=== PATIENT | male | born 1975 | race Caucasian/White ===

== ENCOUNTER 2016-05-13 20:17 | Emergency (ER) | payer BC, OTHER ==
[2016-05-13] MEDS ORDERED: Tetracaine HCl 0.5% Ophth Soln 15 ML Bottle ONE (20:23)
[2016-05-13] MEDS ORDERED: Fluorescein Opthalmic Strip ONE (20:23)
[2016-05-13] MEDS ORDERED: Adacel (T-DAP) 0.5 ML VIAL ONE (20:31)
--- NOTE | 2016-05-13 20:58 | ERRECORD ---
[facility] EMERGENCY RECORD HPI EYE COMPLAINT (20:34 [facility]) CHIEF COMPLAINT: Patient presents for evaluation of pain, Patient presents for evaluation of redness, to the left eye. HISTORIAN: History provided by patient, 41M presents with left eye pain. States he was using a nail gun when he felt sudden impact and pain in the lateral aspect of his left eye. Denies visual changes, but reports pain. Denies foreign body sensation. Denies other injury. MECHANISM OF INJURY: Foreign Body, foreign body was of unknown composition, either metal nail or wood. LOCATION: Symptoms are localized, most severe in the left eye. TIME COURSE: Sudden onset of symptoms, There has been no change in the patient's symptoms over time. ASSOCIATED WITH: No associated contact use, No associated crusting, No associated discharge, No associated facial pain, No associated fever, No associated foreign body sensation, No associated glasses use, No associated headache, No associated nausea, Associated with tearing, No associated upper respiratory infection, No associated vomiting, No associated weakness, No associated blurred vision. RELIEVED BY: Nothing tried for relief. ROS (20:36 [facility]) CONSTITUTIONAL: Negative constitutional review of systems, Historian denies chills, denies fever. EYES: Historian reports eye pain, denies eye redness, denies eye discharge, denies vision changes. ENT: Negative ears, nose, throat review of systems, Historian denies rhinorrhea, denies sore throat. CARDIOVASCULAR: Negative cardiovascular review of systems, Historian denies chest pain, denies palpitations. RESPIRATORY: Negative respiratory review of systems, Historian denies cough, denies shortness of breath. GI: Negative gastrointestinal review of systems, Historian denies abdominal pain, denies constipation, denies diarrhea, denies nausea, denies vomiting. GENITOURINARY MALE: Negative genitourinary review of systems, Historian denies dysuria, denies hematuria. MUSCULOSKELETAL: Negative musculoskeletal review of systems, Historian denies back pain, denies fall, denies injury, denies neck pain. SKIN: Negative skin review of systems, Historian denies rash, denies skin changes. NEUROLOGIC: Negative neurologic review of systems, Historian denies headache. HEMO/LYMPHATIC: Normal hematologic/lymphatic system review, Historian denies abnormal blood clotting. &a-1R&a+25V*p+0X*y6798G*c202B*c15G*c2P*p-0X&a-25V&a+1R Name: Praveen Westfall : 1975 M41 MedRec: [id number] AcctNum: [id number] Prepared: FriMay 13, 2016 20:55 by Interface Page 1 of 4 pMD [facility] EMERGENCY RECORD PAST MEDICAL HISTORY (20:27 [facility]) MEDICAL HISTORY: No past medical history. MALE SURGICAL HISTORY: RIGHT WRIST SX LEFT KNEE SX. PSYCHIATRIC HISTORY: Notes: NO PREVIOUS PSYCH HX. FAMILY HISTORY: No known family hisotry. KNOWN ALLERGIES NKA CURRENT MEDICATIONS (20:37 [facility]) None VITAL SIGNS (20:22 [facility]) VITAL SIGNS: BP: 144/105, Pulse: 80, Resp: 20, Temp: 97.0 (Oral), Pain: 3, O2 sat: 97 on Room Air, Time: 05/13/2016 20:22. PHYSICAL EXAM (20:36 [facility]) CONSTITUTIONAL: Vital signs reviewed, Patient afebrile, Pulse normal, Blood pressure normal, Respiratory rate normal, Patient appears non toxic, Patient appears pain free, Patient alert and oriented to person, place and time. HEAD: Head exam normal, Head exam included findings of head atraumatic, normocephalic. EYES: Eye exam included findings of eyelids normal to inspection, Pupils equally round and reactive to light, Extraocular muscles intact, Conjunctiva, injected on the left, Sclera normal, Fundoscopic exam normal, Eye exam included findings of anterior chamber clear, Intraocular pressure, Fluorescein uptake abnormal, two corneal abrasions on left eye, one at 3 oclock, over lateral iris sparing pupil, second lateral to that, Visual acuity:, visual acuity intact. ENT: ENT exam normal, Ear exam normal, external ear normal, tympanic membranes normal, no bleeding, Pharynx exam normal, Uvula exam normal, Tonsil exam normal, Mouth exam normal, mucous membranes moist, teeth normal. NECK: Neck exam normal, Neck exam included findings of normal range of motion, Trachea midline, no meningeal signs, no cervical adenopathy, no tenderness. RESPIRATORY CHEST: Respiratory and chest exam normal, Respiratory exam included findings of no respiratory distress, Breath sounds clear. CARDIOVASCULAR: Cardiovascular assessment normal, Cardiovascular exam included findings of heart rate regular rate and rhythm, Heart sounds normal. ABDOMEN MALE: Abdominal exam included findings of abdomen nontender, Bowel sounds normal, no distension, no mass, no pulsatile masses, no peritoneal signs, no rigidity, no guarding, no rebound, Rovsing's sign absent. BACK: Back exam normal, Back exam included findings of normal &a-1R&a+25V*p+0X*m0346W*c202B*c15G*c2P*p-0X&a-25V&a+1R Name: Praveen Westfall : 1975 M41 MedRec: [id number] AcctNum: [id number] Prepared: FriMay 13, 2016 20:55 by Interface Page 2 of 4 pMD [facility] EMERGENCY RECORD inspection, range of motion normal, no tenderness. UPPER EXTREMITY: Upper extremity exam normal, Upper extremity exam included findings of inspection normal, Range of motion normal, Motor strength normal, Sensation intact, Radial pulse normal. LOWER EXTREMITY: Lower extremity exam normal, Lower extremity exam included findings of inspection normal, Range of motion normal, Motor strength normal, Sensation intact, Posterior tibial pulse normal, Pedal pulse normal. NEURO: Neuro exam normal, Neuro exam findings include patient oriented to person, place and time, Speech normal, Gait normal. SKIN: Skin exam normal, Skin exam included findings of skin warm, dry, and normal in color, no rash. PSYCHIATRIC: Psychiatric exam normal, Normal affect. MEDICATION ADMINISTRATION SUMMARY Drug Name: Adacel(Tdap Adolesn/Adult)(PF), Dose Ordered: 0.5 mL, Route: Intramuscular, Status: Given, Time: 20:37 05/13/2016, Detailed record available in Medication Service section. DOCTOR NOTES (20:52 [facility]) TEXT: patient presented with findings consistent with traumatic corneal abrasion. No evidence of infection, no Jamil sign, normal anterior chamber. No other concerning findings. Prophylactic topical antibiotics prescribed, patient can follow up with ophthalmology or return to the ED if symptoms do not improve. PATIENT STATUS: Patient has improved since arrival to emergency department. PATIENT PLAN: The patient will be discharged, The patient will follow up with primary care physician. PROBLEM LIST No recorded problems DIAGNOSIS (20:29 [facility]) FINAL: PRIMARY: Corneal abrasion. PRESCRIPTION (20:33 [facility]) ofloxacin ophthalmic: DROPS : 0.3 % : OPHTHALMIC : Quantity: 2 Unit: Drps Route: OPHTHALMIC Schedule: every 6 hours Dispense: QS May substitute. Refills: No Refills . NOTES: for 7 days No refills. DISPOSITION PATIENT: Disposition Type: Discharge, Disposition: *Discharge Home. [facility] Patient left the department. (20:46 [facility]) Ramon: &a-1R&a+25V*p+0X*i8312I*c202B*c15G*c2P*p-0X&a-25V&a+1R Name: KhoiPraveen : 1975 [facility] MedRec: [id number] AcctNum: [id number] Prepared: FriMay 13, 2016 20:55 by Interface Page 3 of 4 pMD [facility] EMERGENCY RECORD JJAC=MD Ally, Dayron KMOR=GENE Choe, Nicole MVIL=GENE Gutierrez, Gretchen &a-1R&a+25V*p+0X*[id number]*c202B*c15G*c2P*p-0X&a-25V&a+1R Name: KhoiPraveen : 1975 1 MedRec: [id number] AcctNum: [id number] Prepared: FriMay 13, 2016 20:55 by Interface Page 4 of 4 pMD MTDD
--- NOTE | 2016-05-13 21:10 | PICIS ---
[facility] EMERGENCY RECORD TRIAGE (20:24 [facility]) TRIAGE NOTES: C/O NAIL RICOCHET OFF OF LEFT EYE. (20:24 [facility]) PATIENT: NAME: Praveen Westfall, AGE: 41, GENDER: male, : Fri1975, TIME OF GREET: FriMay 13, 2016 20:18, PREFERRED LANGUAGE: Irish, ETHNICITY: Not or , ECODE BILLING MAP: [facility], SSN: [id number], Zip Code: [address], KG WEIGHT: 68.04, PHONE: , , , PERSON ID: [id number], PCP: Gabi HANNAH RUSSEL. (20:24 [facility]) COMPLAINT: C/O LEFT EYE INJURY. (20:24 [facility]) ADMISSION: URGENCY: 3 Urgent, ADMISSION SOURCE: Work, TRANSPORT: CAR, BED: ER -03. (20:24 [facility]) ASSESSMENT: Assessment: C/O NAIL RICOCHET TO LEFT EYE. PATIENT STATES CAN SEE FROM HIS LEFT EYE., Symptoms began 05/13/2016 20:26, Symptoms began 30 min ago. (20:27 [facility]) PAIN: Patient complains of pain described as, burning, on a scale 0-10 patient rates pain as 3, Pain is constant, No aggravating factors, No efforts tried to relieve symptoms. (20:27 [facility]) IMMUNIZATIONS: Flu vaccine not up to date, Tetanus not up to date, Pneumococcal vaccine not up to date. (20:27 [facility]) SIRS SCORING: Heart Rate 55-109 (0), Temp range 96.8-101.1 (0), respiratory rate 12-24 (0), Mental Status altered: no (0). (20:27 [facility]) PROVIDERS: TRIAGE NURSE: Gretchen Gutierrez RN. (20:24 [facility]) VITAL SIGNS: BP 144/105, Pulse 80, Resp 20, Temp 97.0, (Oral), Pain 3, O2 Sat 97, on Room Air, Time 05/13/2016 20:22. (20:22 [facility]) KNOWN ALLERGIES NKA CURRENT MEDICATIONS (20:37 [facility]) None VITAL SIGNS (20:22 [facility]) VITAL SIGNS: BP: 144/105, Pulse: 80, Resp: 20, Temp: 97.0 (Oral), Pain: 3, O2 sat: 97 on Room Air, Time: 05/13/2016 20:22. NURSING ASSESSMENT: EYE (20:37 [facility]) CONSTITUTIONAL: Patient arrives ambulatory, Gait steady, History obtained from patient, Patient appears, uncomfortable, Patient cooperative, Patient alert, Oriented to person, place and time, Skin warm, Skin dry, Skin normal in color, Mucous membranes pink, Mucous membranes moist, Patient is well-groomed, Patient complains of Eye injury, Left eye injury after nail gun richchet back to eye. PAIN: aching pain, Left eye, on a scale 0-10 patient rates pain as 3. &a-1R&a+25V*p+0X*y6891I*c202B*c15G*c2P*p-0X&a-25V&a+1R Name: Praveen Westfall : 1975 M41 MedRec: [id number] AcctNum: [id number] Prepared: FriMay 13, 2016 21:02 by Interface Page 1 of 6 pMD [facility] EMERGENCY RECORD EYES: Eye assessment findings include orbits normal, Eye lid, with lesions on the left, with redness at eyelashes on the left, normal on the right, Conjunctiva, with hemorrhage on the left, normal on the right, Sclera, with hemorrhage on the left, normal on the right, Cornea clear, Iris normal, Pupils equally round and reactive to light, Left pupil 3 mm in size, Right pupil 3 mm in size, no associated drainage noted, no associated foreign body visualized, no associated nystagmus, Associated with photophobia, Associated with tearing, to the left eye, no associated visual changes. NOTES: Patient tolerated procedure well. NURSING PROCEDURE: DISCHARGE NOTE (20:46 [facility]) DISCHARGE: Patient discharged to home, ambulating without assistance, driving self, unaccompanied, Summary of Care printed/ provided, Patient requested and was provided an electronic copy of Discharge Instructions, Transition record given to patient, Discharge instructions given to patient, Prescriptions given and instructions on side effects given, Medication reconciliation form given, Above person(s) verbalized understanding of discharge instructions and follow-up care. BELONGINGS: Belongings and valuables with patient at time of discharge include:. NURSING PROCEDURE: EYE CARE (20:30 [facility]) PATIENT IDENTIFIER: Patient actively involved in identification process, Patient's identity verified by patient stating name, Patient's identity verified by patient stating date. EYE CARE: Dr. Canales, Notes: Newton lamp used at bedside. FOLLOW-UP: After procedure, patient rates pain as 1 out of 10. NOTES: Patient tolerated procedure well. MEDICATION ADMINISTRATION SUMMARY Drug Name: Adacel(Tdap Adolesn/Adult)(PF), Dose Ordered: 0.5 mL, Route: Intramuscular, Status: Given, Time: 20:37 05/13/2016, Detailed record available in Medication Service section. MEDICATION SERVICE (20:37 [facility]) Adacel(Tdap Adolesn/Adult)(PF): Order: Adacel(Tdap Adolesn/Adult)(PF) (diphth,pertuss(acell),tet vac/preservative free) - Dose: 0.5 mL : Intramuscular Ordered by: Dayron Canales MD Entered by: Dayron Canales MD FriMay 13, 2016 20:31 Documented as given by: Gretchen Guteirrez RN FriMay 13, 2016 20:37 Patient, Medication, Dose, Route and Time verified prior to &a-1R&a+25V*p+0X*r7577K*c202B*c15G*c2P*p-0X&a-25V&a+1R Name: Praveen Westfall : 1975 M41 MedRec: [id number] AcctNum: [id number] Prepared: FriMay 13, 2016 21:02 by Interface Page 2 of 6 pMD [facility] EMERGENCY RECORD administration. 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 HPI EYE COMPLAINT (20:34 [facility]) CHIEF COMPLAINT: Patient presents for evaluation of pain, Patient presents for evaluation of redness, to the left eye. HISTORIAN: History provided by patient, 41M presents with left eye pain. States he was using a nail gun when he felt sudden impact and pain in the lateral aspect of his left eye. Denies visual changes, but reports pain. Denies foreign body sensation. Denies other injury. MECHANISM OF INJURY: Foreign Body, foreign body was of unknown composition, either metal nail or wood. LOCATION: Symptoms are localized, most severe in the left eye. TIME COURSE: Sudden onset of symptoms, There has been no change in the patient's symptoms over time. ASSOCIATED WITH: No associated contact use, No associated crusting, No associated discharge, No associated facial pain, No associated fever, No associated foreign body sensation, No associated glasses use, No associated headache, No associated nausea, Associated with tearing, No associated upper respiratory infection, No associated vomiting, No associated weakness, No associated blurred vision. RELIEVED BY: Nothing tried for relief. ROS (20:36 [facility]) CONSTITUTIONAL: Negative constitutional review of systems, Historian denies chills, denies fever. EYES: Historian reports eye pain, denies eye redness, denies eye discharge, denies vision changes. ENT: Negative ears, nose, throat review of systems, Historian denies rhinorrhea, denies sore throat. CARDIOVASCULAR: Negative cardiovascular review of systems, Historian denies chest pain, denies palpitations. RESPIRATORY: Negative respiratory review of systems, Historian denies cough, denies shortness of breath. GI: Negative gastrointestinal review of systems, Historian denies abdominal pain, denies constipation, denies diarrhea, denies nausea, denies vomiting. GENITOURINARY MALE: Negative genitourinary review of systems, &a-1R&a+25V*p+0X*k5612C*c202B*c15G*c2P*p-0X&a-25V&a+1R Name: Praveen Westfall : 1975 M41 MedRec: [id number] AcctNum: [id number] Prepared: FriMay 13, 2016 21:02 by Interface Page 3 of 6 pMD [facility] EMERGENCY RECORD Historian denies dysuria, denies hematuria. MUSCULOSKELETAL: Negative musculoskeletal review of systems, Historian denies back pain, denies fall, denies injury, denies neck pain. SKIN: Negative skin review of systems, Historian denies rash, denies skin changes. NEUROLOGIC: Negative neurologic review of systems, Historian denies headache. HEMO/LYMPHATIC: Normal hematologic/lymphatic system review, Historian denies abnormal blood clotting. PAST MEDICAL HISTORY (20:27 [facility]) MEDICAL HISTORY: No past medical history. MALE SURGICAL HISTORY: RIGHT WRIST SX LEFT KNEE SX. PSYCHIATRIC HISTORY: Notes: NO PREVIOUS PSYCH HX. FAMILY HISTORY: No known family hisotry. PHYSICAL EXAM (20:36 [facility]) CONSTITUTIONAL: Vital signs reviewed, Patient afebrile, Pulse normal, Blood pressure normal, Respiratory rate normal, Patient appears non toxic, Patient appears pain free, Patient alert and oriented to person, place and time. HEAD: Head exam normal, Head exam included findings of head atraumatic, normocephalic. EYES: Eye exam included findings of eyelids normal to inspection, Pupils equally round and reactive to light, Extraocular muscles intact, Conjunctiva, injected on the left, Sclera normal, Fundoscopic exam normal, Eye exam included findings of anterior chamber clear, Intraocular pressure, Fluorescein uptake abnormal, two corneal abrasions on left eye, one at 3 oclock, over lateral iris sparing pupil, second lateral to that, Visual acuity:, visual acuity intact. ENT: ENT exam normal, Ear exam normal, external ear normal, tympanic membranes normal, no bleeding, Pharynx exam normal, Uvula exam normal, Tonsil exam normal, Mouth exam normal, mucous membranes moist, teeth normal. NECK: Neck exam normal, Neck exam included findings of normal range of motion, Trachea midline, no meningeal signs, no cervical adenopathy, no tenderness. RESPIRATORY CHEST: Respiratory and chest exam normal, Respiratory exam included findings of no respiratory distress, Breath sounds clear. CARDIOVASCULAR: Cardiovascular assessment normal, Cardiovascular exam included findings of heart rate regular rate and rhythm, Heart sounds normal. ABDOMEN MALE: Abdominal exam included findings of abdomen nontender, Bowel sounds normal, no distension, no mass, no pulsatile masses, no peritoneal signs, no rigidity, no guarding, no rebound, Rovsing's sign absent. &a-1R&a+25V*p+0X*d8942S*c202B*c15G*c2P*p-0X&a-25V&a+1R Name: Praveen Westfall : 1975 M41 MedRec: [id number] AcctNum: [id number] Prepared: FriMay 13, 2016 21:02 by Interface Page 4 of 6 pMD [facility] EMERGENCY RECORD BACK: Back exam normal, Back exam included findings of normal inspection, range of motion normal, no tenderness. UPPER EXTREMITY: Upper extremity exam normal, Upper extremity exam included findings of inspection normal, Range of motion normal, Motor strength normal, Sensation intact, Radial pulse normal. LOWER EXTREMITY: Lower extremity exam normal, Lower extremity exam included findings of inspection normal, Range of motion normal, Motor strength normal, Sensation intact, Posterior tibial pulse normal, Pedal pulse normal. NEURO: Neuro exam normal, Neuro exam findings include patient oriented to person, place and time, Speech normal, Gait normal. SKIN: Skin exam normal, Skin exam included findings of skin warm, dry, and normal in color, no rash. PSYCHIATRIC: Psychiatric exam normal, Normal affect. EVENTS TRANSFER: Triage to Emergency Emergency Room -03. (FriMay 13, 2016 20:24 MVIL) Removed from Emergency Emergency Room -03. (20:46 MVIL) DOCTOR NOTES (20:52 [facility]) TEXT: patient presented with findings consistent with traumatic corneal abrasion. No evidence of infection, no Jamil sign, normal anterior chamber. No other concerning findings. Prophylactic topical antibiotics prescribed, patient can follow up with ophthalmology or return to the ED if symptoms do not improve. PATIENT STATUS: Patient has improved since arrival to emergency department. PATIENT PLAN: The patient will be discharged, The patient will follow up with primary care physician. PROBLEM LIST No recorded problems DIAGNOSIS (20:29 [facility]) FINAL: PRIMARY: Corneal abrasion. DISPOSITION PATIENT: Disposition Type: Discharge, Disposition: *Discharge Home. (20:29 [facility]) Patient left the department. (20:46 MV[facility]) INSTRUCTION (20:30 [facility]) DISCHARGE: CORNEAL ABRASION. FO[facility]UP[facility] [id number] [id number]. SPECIAL: If your vision changes or your eye gets worse, return to the ED. PRESCRIPTION (20:33 [facility]) &a-1R&a+25V*p+0X*s3007R*c202B*c15G*c2P*p-0X&a-25V&a+1R Name: Praveen Westfall : 1975 1 MedRec: [id number] AcctNum: [id number] Prepared: FriMay 13, 2016 21:02 by Interface Page 5 of 6 pMD [facility] EMERGENCY RECORD ofloxacin ophthalmic: DROPS : 0.3 % : OPHTHALMIC : Quantity: 2 Unit: Drps Route: OPHTHALMIC Schedule: every 6 hours Dispense: QS May substitute. Refills: No Refills . NOTES: for 7 days No refills. IMAGING (20:45 [facility]) *DISCHARGE INSTRUCTIONS RECEIPT: Image captured from scanner. *SUPPLY CHARGE SHEET: Image captured from scanner. TETANUS CONSENT: Image captured from scanner. ADMIN (20:53 [facility]) DIGITAL SIGNATURE: MD Canales Jason. Ramon: JOSE=MD Canales Jason KMOR=GENE Choe, Nicole MVIL=GENE Gutierrez, Gretchen &a-1R&a+25V*p+0X*u6513J*c202B*c15G*c2P*p-0X&a-25V&a+1R Name: Praveen Westfall : 1975 1 MedRec: [id number] AcctNum: [id number] Prepared: FriMay 13, 2016 21:02 by Interface Page 6 of 6 pMD MTDD
== END 2016-05-13 20:30 | disposition home or self-care (01) ==
LOC: BURERS 20:17
DX: S05.02XA Injury of conjunctiva and corneal abrasion without foreign body, left eye, initial encounter (principal); W22.8XXA Striking against or struck by other objects, initial encounter
CPT/HCPCS: 90471; 90715